=== PATIENT | male | born 1980 | race Hispanic/Latino ===

== ENCOUNTER 2023-01-12 17:28 | Emergency (ER) | payer OTHER ==
[~2023-01-12] VITALS: Ht 170.2 cm; Wt 86.2 kg
[2023-01-12 20:33] VITALS: O2SAT 100
== END 2023-01-12 20:38 | disposition home or self-care (01) ==
LOC: ER 17:34
DX: S93.491A Sprain of other ligament of right ankle, initial encounter (principal); W20.8XXA Other cause of strike by thrown, projected or falling object, initial encounter; Y92.89 Other specified places as the place of occurrence of the external cause
CPT/HCPCS: 99283